=== PATIENT | female | born 1960 | race Caucasian/White ===

== ENCOUNTER 2022-10-14 09:04 | Emergency (ER) | payer OTHER | END 2022-10-14 12:04 | disposition home or self-care (01) | LOC: JD.ED 09:04 | DX: S01.81XA Laceration without foreign body of other part of head, initial encounter (principal); W17.89XA Other fall from one level to another, initial encounter; Y93.01 Activity, walking, marching and hiking | CPT/HCPCS: 12011; 70450; 70450-26; 70486; 70486-26; 99283 ==